=== PATIENT | female | born 1995 | race Caucasian/White ===

== ENCOUNTER → 2018-05-16 17:36 | Outpatient (CLI) | payer MEDICAID ==
[~2018-05-16 17:36] MED LIST: BUT; PRENATAL COMPLE1 TAB PO; [UNRECOGNIZED DRUG - OTHER]
[2018-05-16 19:16] LABS: BASOPHILS 0.1 % (0-2); HEMATOCRIT 35.5 % (36.0-48.0); HEMOGLOBIN 11.8 g/dL (12-16); IMMATURE GRANULOCYTES 0.3 % (0-5); LYMPHOCYTES 18.8 % (15-50); MCH 27.1 pg (26.0-34.0); MCHC 33.2 g/dL (31.0-37.0); MCV 81.4 fL (80.0-100.0); MEAN PLATELET VOLUME 10.7 fL (7.4-10.4); MONOCYTES 7.7 % (2-11); NEUTROPHILS 72.1 % (40-80); PLATELET COUNT 213 10x3/uL (130-400); RBC 4.36 10x6/uL (4.00-5.40); RDW 13.2 % (11.5-14.5); WBC 9.2 10x3/uL (4.8-10.8)
[2018-05-16 19:53] LABS: APPEARANCE CLEAR (CLEAR); COLOR YELLOW (YELLOW)
[2018-05-16 19:54] LABS: BILIRUBIN NEGATIVE (NEGATIVE); GLUCOSE NEGATIVE (NEGATIVE); KETONE NEGATIVE (NEGATIVE); NITRITE NEGATIVE (NEGATIVE); PROTEIN NEGATIVE (NEGATIVE); UROBILINOGEN NORMAL (NORMAL)
[2018-05-16 19:56] LABS: BACTERIA MANY /hpf (NONE SEEN); RED CELLS - URINE 0-5 /hpf (0-5)
[2018-06-06 16:15] VITALS: BMI 41.4
== END | disposition home or self-care (01) ==
LOC: D.LDO 17:36
PROVIDERS: Obstetrics & Gynecology
DX: O26.893 Other specified pregnancy related conditions, third trimester (principal); Z3A.34 34 weeks gestation of pregnancy

== ENCOUNTER 2018-05-22 19:06 | Outpatient (CLI) | payer MEDICAID ==
[2018-05-22 19:44] LABS: APPEARANCE HAZY (CLEAR); BILIRUBIN NEGATIVE (NEGATIVE); COLOR YELLOW (YELLOW); GLUCOSE NEGATIVE (NEGATIVE); KETONE NEGATIVE (NEGATIVE); NITRITE NEGATIVE (NEGATIVE); PROTEIN NEGATIVE (NEGATIVE); SPECIFIC GRAVITY 1.015 (1.005-1.020); UROBILINOGEN NORMAL (NORMAL)
[2018-05-22 19:47] LABS: BACTERIA MODERATE /hpf (NONE SEEN); MUCUS <1+ /lpf (NONE SEEN); RED CELLS - URINE OCC /hpf (0-5)
[2018-06-06 16:15] VITALS: BMI 41.4
== END 2018-05-22 20:13 | disposition home or self-care (01) ==
LOC: D.LDO 19:06
PROVIDERS: Obstetrics & Gynecology
DX: O26.893 Other specified pregnancy related conditions, third trimester (principal); Z3A.34 34 weeks gestation of pregnancy

== ENCOUNTER → 2018-05-23 15:32 | Outpatient (CLI) | payer MEDICAID ==
[2018-06-06 16:15] VITALS: BMI 41.4
== END | disposition home or self-care (01) ==
LOC: D.LDO 15:32
DX: O26.893 Other specified pregnancy related conditions, third trimester (principal); Z3A.30 30 weeks gestation of pregnancy

== ENCOUNTER → 2018-05-26 14:16 | Outpatient (CLI) | payer MEDICAID ==
[2018-06-06 16:15] VITALS: BMI 41.4
== END | disposition home or self-care (01) ==
LOC: D.LDO 14:16
DX: O14.93 Unspecified pre-eclampsia, third trimester (principal); Z3A.36 36 weeks gestation of pregnancy

== ENCOUNTER → 2018-05-30 14:07 | Outpatient (CLI) | payer MEDICAID ==
[2018-06-06 16:15] VITALS: BMI 41.4
== END | disposition home or self-care (01) ==
LOC: D.LDO 14:07
DX: O26.893 Other specified pregnancy related conditions, third trimester (principal); Z3A.36 36 weeks gestation of pregnancy

== ENCOUNTER → 2018-06-02 15:26 | Outpatient (CLI) | payer MEDICAID ==
[2018-06-02 16:06] LABS: BASOPHILS 0.1 % (0-2); EOSINOPHILS 0.4 % (0-7); HEMATOCRIT 36.3 % (36.0-48.0); HEMOGLOBIN 11.7 g/dL (12-16); IMMATURE GRANULOCYTES 0.4 % (0-5); LYMPHOCYTES 14.6 % (15-50); MCH 26.4 pg (26.0-34.0); MCHC 32.2 g/dL (31.0-37.0); MCV 81.9 fL (80.0-100.0); MEAN PLATELET VOLUME 10.6 fL (7.4-10.4); MONOCYTES 7.7 % (2-11); NEUTROPHILS 76.8 % (40-80); PLATELET COUNT 193 10x3/uL (130-400); RBC 4.43 10x6/uL (4.00-5.40); RDW 13.8 % (11.5-14.5); WBC 9.4 10x3/uL (4.8-10.8)
[2018-06-02 16:16] LABS: ALBUMIN 2.4 g/dL (3.4-5.0); ALKALINE PHOSPHATASE 207 U/L (46-116); ALT (SGPT) 11 U/L (10-68); BILIRUBIN - DIRECT 0.05 mg/dL (0.00-0.30); BILIRUBIN - INDIRECT 0.16 mg/dL (0.00-1.00); BILIRUBIN - TOTAL 0.21 mg/dL (0.2-1.3); CALC OSMOLALITY 274 mosm/kg (275-300); CALCIUM 8.4 mg/dL (8.5-10.1); CARBON DIOXIDE 21.3 mmol/L (21.0-32.0); CHLORIDE - SERUM 107 mmol/L (98-107); CREATININE - SERUM 0.4 mg/dL (0.6-1.3); GLUCOSE 75 mg/dL (74-106); POTASSIUM - SERUM 4.2 mmol/L (3.5-5.1); PROTEIN - SERUM 6.1 g/dL (6.4-8.2); SODIUM 140 mmol/L (136-145); UREA NITROGEN 5 mg/dL (7-18); URIC ACID 4.5 mg/dL (2.6-7.2); eGFR NON AFRICAN AMERICAN > 90 mL/min (90-120)
[2018-06-06 16:15] VITALS: BMI 41.4
== END | disposition home or self-care (01) ==
LOC: D.LDO 15:26
PROVIDERS: Obstetrics & Gynecology
DX: O14.90 Unspecified pre-eclampsia, unspecified trimester (principal); Z3A.37 37 weeks gestation of pregnancy

== ENCOUNTER 2018-06-06 15:31 | Inpatient (IN) | payer MEDICAID ==
[~2018-06-06] VITALS: Ht 162.6 cm; Wt 109.3 kg
--- NOTE | ~2018-06-06 | DS ---
PATIENT:DULCE ORTEGA :89 MEDICAL RECORD: [id number] DISCHARGE SUMMARY ADMISSION DATE: 06/06/18 DISCHARGE DATE: 06/10/18 DATE OF ADMISSION: 06/06/2018. DATE OF DISCHARGE: 06/10/2018. ADMISSION DIAGNOSIS: Mild preeclampsia at term. DISCHARGE DIAGNOSES: 1. Mild preeclampsia at term. 2. Delivered. PROCEDURE: Induction of labor with vaginal delivery. ATTENDING: Shannan Tan MD HISTORY OF PRESENT ILLNESS: See the H&P in the chart. SUMMARY OF HOSPITALIZATION: The patient was admitted to the hospital and underwent induction of labor without incident. The patient went on to deliver vaginally. At the time of discharge, her diastolic blood pressures are noted to be in the 90s. She is asymptomatic. The patient has been given precautions and will follow up in 2 weeks for blood pressure check. DISCHARGE MEDICATION: Includes oral contraception. Pain management will be with [id number] Tylenol and/or Motrin. TRANSINT:[id number] Voice Confirmation ID: [id number] DOCUMENT ID: [id number] SHANNAN TAN MD at 1604 CC: [id number] DICTATION DATE: 06/10/18 1252 RACQUET MAKER: 06/10/18 1332 DIS IN 06/10/18 [facility] [address] [place] [address]
--- NOTE | ~2018-06-06 | OP ---
PATIENT NAME: DULCE ORTEGA MEDICAL RECORD: [id number] :89 LOCATION:[id number] ADMISSION DATE:06/06/18 SURGEON: MARTIN KAUR MD DATE OF OPERATION: 06/08/2018 PREDELIVERY DIAGNOSIS: Mild preeclampsia at term. POSTDELIVERY DIAGNOSES: 1. Mother delivered at term. 2. Mild preeclampsia. PROCEDURE: Induction of labor with vaginal delivery. ATTENDING PHYSICIAN: Martin Kaur MD ANESTHETIC: Continuous lumbar epidural. FINDINGS: Viable male , BARBER presentation, Apgars are 8 and 9, weight 8 pounds 5 ounces. Second-degree laceration with 3-0 chromic and 4-0 chromic repair. Placenta spontaneous and intact. ESTIMATED BLOOD LOSS: 400 cc. DISPOSITION: Mother and infant recovered in the room. Pressures will be monitored and magnesium sulfate will be withheld unless the patient develops signs or symptoms of severe disease. TRANSINT:[id number] Voice Confirmation ID: [id number] DOCUMENT ID: [id number] MARTIN KAUR MD at 1253 CC: [id number] DICTATION DATE: 06/08/18 1614 LEGAL INTERNSHIP: 06/08/18 1635 ADM IN [place] [id number] [place] [address]
[2018-06-06] MEDS ORDERED: PRENATAL COMPLE1 TAB PO (16:13)
[2018-06-06] MEDS ORDERED: BUT (16:14)
[2018-06-06] MEDS ORDERED: [UNRECOGNIZED DRUG - OTHER] (16:14)
[2018-06-06 16:15] VITALS: BP 122/61; Ht 162.6 cm; Wt 109.3 kg
[2018-06-06 19:11] LABS: HEMATOCRIT 35.4 % (36.0-48.0); HEMOGLOBIN 11.6 g/dL (12-16); MCH 26.5 pg (26.0-34.0); MCHC 32.8 g/dL (31.0-37.0); MEAN PLATELET VOLUME 11.2 fL (7.4-10.4); RBC 4.37 10x6/uL (4.00-5.40); RDW 13.8 % (11.5-14.5); WBC 7.9 10x3/uL (4.8-10.8)
[2018-06-08 07:32] LABS: RAPID PLASMA REAGIN Non Reactive (Non Reactive)
[2018-06-08 20:00] VITALS: BP 129/84
[2018-06-09 05:49] LABS: HEMATOCRIT 28.1 % (36.0-48.0); HEMOGLOBIN 9.2 g/dL (12-16); MCH 26.4 pg (26.0-34.0); MCHC 32.7 g/dL (31.0-37.0); MCV 80.5 fL (80.0-100.0); MEAN PLATELET VOLUME 10.4 fL (7.4-10.4); RBC 3.49 10x6/uL (4.00-5.40); RDW 14.2 % (11.5-14.5); WBC 10.4 10x3/uL (4.8-10.8)
[2018-06-09 07:35] VITALS: BP 145/85
[2018-06-09 12:30] VITALS: BP 143/95
[2018-06-09 13:45] VITALS: BP 116/73
[2018-06-09 19:14] VITALS: BP 123/76
[2018-06-10 07:30] VITALS: BP 148/91
[2018-06-10 12:10] VITALS: BP 143/91
== END 2018-06-10 17:00 | disposition home or self-care (01) | DRG 774 ==
LOC: D.LD 15:31 → D.WS 06-08 20:00 → D.LD 06-25 10:04
PROVIDERS: Obstetrics & Gynecology
PROC: 10907ZC Drainage of Amniotic Fluid, Therapeutic from Products of Conception, Via Natural or Artificial Opening (ICD-10-PCS; principal; 2018-06-08)
PROC: 10E0XZZ Delivery of Products of Conception, External Approach (ICD-10-PCS; 2018-06-08)
PROC: 0KQM0ZZ Repair Perineum Muscle, Open Approach (ICD-10-PCS; 2018-06-08)
PROC: 3E033VJ Introduction of Other Hormone into Peripheral Vein, Percutaneous Approach (ICD-10-PCS; 2018-06-08)
DX: O14.04 Mild to moderate pre-eclampsia, complicating childbirth (principal); O24.92 Unspecified diabetes mellitus in childbirth; O70.0 First degree perineal laceration during delivery; O69.81X0 Labor and delivery complicated by cord around neck, without compression, not applicable or unspecified; Z3A.37 37 weeks gestation of pregnancy; Z37.0 Single live birth